=== PATIENT | female | born 1935 | race Caucasian/White ===

== ENCOUNTER 2016-10-12 08:23 | Emergency (ER) | payer MEDICARE, BC ==
[~2016-10-12] VITALS: Ht 162.6 cm; Wt 79.4 kg
[2016-10-12] MEDS ORDERED: ELIQUIS5 MG PO (08:34)
[2016-10-12] MEDS ORDERED: SIMVASTATIN20 MG PO (08:35)
[2016-10-12] MEDS ORDERED: LISINOPRIL 10MG10 MG PO (08:35)
[2016-10-12] MEDS ORDERED: ZYRTEC10 M2 PO (09:14)
[2016-10-12] MEDS ORDERED: ROBAXIN-750750 MG PO (09:14)
[2016-10-12] MEDS ORDERED: AMOXICOT500 MG PO (09:14)
--- NOTE | 2016-10-12 09:14 | Emergency Room Report ---
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 N Clinical Suspician of Infection? N Mental Status: 1 - Regular (Normal Baseline) Sepsis Risk:Low Sepsis Risk Have you (or family members/close friends) recently traveled outside the [place]? N If Yes, where/when: Have you had exposure to infectious disease within the past month? TB? Other? Specify: 81 years old white female visiting from [place], [place] with past medical history recurrent ear infections, tinnitus, post herpetic neuralgia. She is currently on elquis because of a PE in December 2015, Yesterday, she developed another episode of throbbing LEFT throbbing earache she took 600 mg ibuprofen and it improved. She continued to have LEFT occipital throbbing pain. she is concerned about having a head aneurysm although she underwent a normal MRI by her primary care physician last year. 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 I had an extensive discussion to extract the above history from the patient in the presence of her daughter. I made her aware that she is at risk of a head bleeding rather than a blood clot. Also with a negative MRI within the past year it is unlikely to have an aneurysm developing during that rel;atively short period of time. She had no meningeal signs, no nuchal rigidity or stiffness, she just have a very localized dull throbbing pain and over the LEFT occipital region. She mentions having postherpetic neuralgia that moves from one side of the body to the other, she reports that this type of pain is not her first episodes and she has been experiencing them for 20 years or more .We discussed the need to use noninflammatory medications for that pain to decrease the risk of bleeding.Also advised her to use a PPI for gastrointestinal bleeds and she verbalized understanding. She will be scheduled ou ENT specialist Dr. Myers tomorrow at 2 PM for follow-up and pursue another MRI if needed. Source patient, RN notes reviewed, family Exam Limitations no limitations ALLERGIES Coded Allergies: No Known Allergies (10/12/16) Home Medications Reported Medications Apixaban (Eliquis) 5 MG PO BID Simvastatin 20 MG PO DAILY LISINOPRIL (Lisinopril) 10 MG PO DAILY History Medical History General Hypertension? Yes Hyperlipidemia? Yes DVT? Yes Hernia? Yes More? No Immunization Hx Ped.Immunizations UTD Yes DT/Tetanus 5-10 Years Ago Surgical Hx Previous Surgery?Y HERNIA X 2 LEFT SHOULDER REPLACEMENT Social History Smoking Hx Smoker: Never Smoker Tobacco: No Type N/A Are you/the child exposed to second-hand smoke: No Review of Systems All Other Systems Reviewed and Negative Constitutional see HPI (LEFT occipital headache) Eyes no symptoms reported ENT see HPI, ear pain (throbbing earache). Respiratory no symptoms reported Cardiovascular no symptoms reported Gastrointestinal no symptoms reported Genitourinary no symptoms reported. Musculoskeletal no symptoms reported Skin no symptoms reported Psychiatric/Neurological no symptoms reported Physical Exam Vital Signs Vital Signs Date Time Temp Pulse Resp B/P Pulse O2 O2 Flow FiO2 Ox Delivery Rate 10/12 1023 68 14 109/73 97 10/12 0944 70 14 129/75 97 10/12 0830 97.8 82 18 154/86 98 - WBC >12,000 or <4,000 or 10% bands? 2 or more SIRS Criteria Met? B/P:154/86 MAP:108 Creatinine >2.0? UA output<0.5ml/kg/hr for 2 hrs? Platelet count >100,000? Lactate >2.0mmol/1? INR >1.2 or PTT > than 60 sec? Evidence of Organ Dysfunction? Provider documented clinical suspician of infection? N Sepsis Criteria Count: 0 Sepsis Risk: Low Sepsis Risk General Appearance normal appearance, WD/WN, no apparent distress (provided full history) Eye Exam - bilateral eye normal exam, bilateral eye PERRL, bilateral eye EOMI Ear, Nose, Throat hearing grossly normal (slightly diminished hearing), bilateral eardrums scarring with bulging on the LEFT eardrum possible effusion Neck normal inspection, non-tender, supple, full range of motion, no neck rigidity or stiffness no midline tenderness, no limitation of range of motion/. Respiratory Status Yes: trachea midline, chest symmetrical, non tender chest. No: respiratory distress. Lung Sounds bilateral: normal breath sounds, lungs clear. Cardiovascular normal exam, regular rate/rhythm, no peripheral edema, no gallop, no JVD, no murmur, no rub, normal peripheral pulses Gastrointestinal normal bowel sounds, normal exam, non tender, soft, no organomegaly Extremities non-tender, normal range of motion, normal inspection, wearing bilateral elastics stockings Neurologic alert, pediatric dermatologist II-XII nml as tested, normal exam, no motor/sensory deficits, oriented x 3, no nystagmus, no meningeal signs, straight leg raising is 90 degree. Reflexes Reflexes normal Yes Skin intact, normal color, warm/dry Medical Decision Making LABS/Meds/Orders Pt receiving controlled substance in ED? No Results/Orders Laboratory Tests 10/12/16 1020: Sodium 140, Potassium 4.2, Chloride 107, Carbon Dioxide 24, BUN 25 H, Creatinine 1.1 H, Estimated Creat Clear 52, Estimated GFR (MDRD) 48 L, Glucose 108 H, Calcium 9.5, Total Bilirubin 0.4, AST 24, ALT 30, Alkaline Phosphatase 79, Creatine Kinase 44, CK-MB (CK-2) Rel Index 1.1, CK and CKMB Interp < 0.5, Troponin I < 0.02, Total Protein 7.8, Albumin 3.9, Globulin 3.9 H, Albumin/ Globulin Ratio 1.0 L, WBC 7.3, RBC 4.57, Hgb 14.1, Hct 42.2, MCV 92.5, RDW 12.6 , Plt Count 202, MPV 7.3 L, Gran % 74.9, Gran # 5.4, Lymphocytes % 14.8, Monocytes % 6.6, Eosinophils % 3.1, Basophils % 0.6, Lymphocytes # 1.1, Monocytes # 0.5, Eosinophils # 0.2, Basophils # 0.0, PUBS MCHC 33.3, MCH 30.8 Current Medication Orders Sig/Paula Start time Last Medication Dose Route Stop Time Status Admin Metoclopramide HCl 0 .STK-MED ONE 10/12 925 DC PO Methocarbamol 500 MG ONCE ONE 10/12 914 DC 10/12 PO 10/13 915 0943 Orders Procedure Date/time Status DIET-NOTHING BY MOUTH 10/12 L Active ELECTROCARDIOGRAM REQUEST 10/12 1013 Active CBC WITH AUTO DIFF 10/12 1013 Complete CARDIAC ENZYMES 10/12 1013 Complete CHEM 12 PROFILE 10/[address] SCAN REQ 10/[address] HEAD REQ 10/12 0844 Complete CM/EKG CM/EKG EKG rate, NSR, rhythm, no evid. of ischemic chgs, no EKG for comparison, normal sinus rhythm 65/m, poor R wave progression, no signs of ischemia. Departure Departure Time of Disposition 1045 Disposition DC Home or Self Care(routine) Clinical Impression Primary Impression: Acute otitis media with effusion Secondary Impressions: Chronic pulmonary embolism, Coagulopathy, DJD ( degenerative joint disease), cervical, Paraspinal muscle spasm Condition STABLE Referrals Louis WEISS,Gilles Bob Additional Instructions Discussion: The patient underwent CT scan of the head and the cervical spine I discussed them with the radiologist, and her main problem seems to be degenerative changes at the level of C5 and C6. There was no bleeding or aneurysm by CT examination. As we discussed earlier with started the patient on ALLERGY medications " Zyrtec " antibiotics" Amoxicillin" and muscle relaxants " Robaxin" to avoid the use of ibuprofen while she is on anticoagulation. She was scheduled to see PASTING MACHINE OFFBEARER Dr. Myers TOMORROW October 13 at 2 PM, at this point if he feels that an MRI is warranted it can be ORDERED. She understands that with a normal MRI less than a year ago the probability of having an aneurysm is a probabilty. ED course: During her ED stay the pain seemed to be sharpen when she moves her neck from side to side. The patient was given Robaxin and ED and we discussed the use of steroids injection. She understand that she will risk a large hematoma with being on apixban full strength, so she requested an oral steroid while she is fully aware of the risk of elevated blood sugar peptic ulcer disease and mood swings. Again, she is aware that she will need to take proton pump inhibitor like Protonix. The patient remained stable in the ED with no hemodynamic or neurologic changes. She was discharged in stable condition, she will return for worse or any new symptoms. Dr. Lerma Discharge Counseling Counseled pt/family regarding diagnosis, test results, medications/RX, home care, follow up needs Prescriptions Current Visit Scripts Methocarbamol (Robaxin 750MG) 750 MG PO Q8HP PRN pain #21 TAB Ref 1 Amoxicillin (Amoxicillin 500MG) 500 MG PO Q8 #30 CAP CETIRIZINE HCL (Zyrtec) 10 MG PO DAILY #30 TAB Methylprednisolone (Medrol Dose Rogelio) 4 MG PO UD #1 ROGELIO TAKE DIRECTED ON PACKAGING ED Critical Care Critical Care No If Critical Care minutes are documented, the time involved in the performance of seperately reportable procedures was not counted toward critical care time documented. I directly delivered medical care to this critically ill and/or injured patient. Timely evaluation and treatment was necessary to address the significant organ system(s) dysfunction present in this patient. at 1110
--- NOTE | 2016-10-12 09:17 | RADIOLOGY REPORT PS360 ---
CT HEAD W/O CONTRAST HISTORY: HEADACHE FOR 2 DAYS, NO DEFICIT ORDERING PHYSICIAN: Ja Lerma MD PATIENT AGE: 81 years COMPARISON: None TECHNIQUE: Axial images obtained without contrast. Brain and bone windows reviewed. FINDINGS: No midline shift, mass effect, intracranial hemorrhage, hydrocephalus, or extra-axial fluid collection is evident. The calvarium has an unremarkable appearance. No mastoid effusion. The visualized paranasal sinuses are unremarkable. IMPRESSION: No acute intracranial findings.
--- NOTE | 2016-10-12 09:22 | RADIOLOGY REPORT PS360 ---
CT CERVICAL SPINE W/O CONT INDICATION: Left-sided neck and head pain NECK PAIN LEFT ORDERING PHYSICIAN: Ja Lerma MD PATIENT AGE: 81 years COMPARISON: None TECHNIQUE: Axial images are obtained without contrast. Sagittal and coronal reformatted images are reviewed as well. FINDINGS: Normal alignment. No acute fracture or dislocation. No destructive process. There is straightening of cervical lordosis which may be due to patient positioning or muscle spasm. C2-C3: Unremarkable. C3-C4: Unremarkable. C4-C5: 2 mm anterolisthesis of C4. Left-sided facet and uncovertebral hypertrophy with moderate left-sided foraminal narrowing C5-C6: Moderate to severe degenerative disc disease with endplate and uncovertebral sclerosis and hypertrophy. Mild bilateral foraminal narrowing. C6-C7: Mild hypertrophic change along the posterior aspect of C7 with bulging disc with mild narrowing of the canal. Lung apices are clear. No soft tissue mass or cervical adenopathy. IMPRESSION: 1. Cervical spondylosis. Please see above detailed description at each level. There is moderate to severe degenerative disc disease at C5-C6 with bilateral foraminal narrowing and moderate left-sided foraminal narrowing at C4-C5 with borderline canal stenosis at C6-C7. IMPRESSION:
[2016-10-12] MEDS ORDERED: MEDROL 4MG. DOSE4 MG PO (09:39)
[2016-10-12 10:34] LABS: HEMOGLOBIN 14.1 g/dL (12.2-16.2); LYMPH # 1.1 K/mm3 (0.7-4.5); LYMPH % 14.8 % (10-50.0)
[2016-10-12 10:58] LABS: BUN 25 mg/dL (7-18)
[2016-10-12 10:59] LABS: GFR (ESTIMATED) 48 ML/MIN (59-)
[2016-10-12 11:14] VITALS: BP 128/80
[2016-10-19] MEDS ORDERED: NEURONTIN 300M300 MG PO (09:42)
== END 2016-10-12 11:15 | disposition home or self-care (01) ==
LOC: ER 08:23
PROVIDERS: Emergency Medicine
DX: H65.192 Other acute nonsuppurative otitis media, left ear (principal); Z86.711 Personal history of pulmonary embolism; Z79.01 Long term (current) use of anticoagulants; M62.830 Muscle spasm of back